=== PATIENT | male | born 1965 | race Asian ===

== ENCOUNTER → 2018-04-19 | Outpatient (CLI) | payer BC ==
[~2018-04-19] MED LIST: GADOBENATE DIMEGLUMINE 529 MG/ML 10ML IV ONE; IOHEXOL-300 50 ML BOTTLE IV ONE; LIDOCAINE HCL 1% 20ML VIAL (Pyxis) INJ ONE; SODIUM BICARBONATE 4% (2.4MEQ) 5ML VIAL IV ONE; SODIUM CHLORIDE 0.9% 10ML VIAL ONE
== END | disposition home or self-care (01) ==
LOC: MRI 09:47
DX: M17.12 Unilateral primary osteoarthritis, left knee (principal); M22.42 Chondromalacia patellae, left knee
CPT/HCPCS: 20611; 73580; 73722; A4216; A9577; J3490; Q9967

== ENCOUNTER → 2018-06-26 | Outpatient (CLI) | payer BC | END | disposition home or self-care (01) | LOC: RAD 08:13 | PROVIDERS: ATTEND Internal Medicine Gastroenterology | DX: Z01.818 Encounter for other preprocedural examination (principal); E78.00 Pure hypercholesterolemia, unspecified; R94.31 Abnormal electrocardiogram [ECG] [EKG] | CPT/HCPCS: 71045; 93005 ==

== ENCOUNTER → 2018-06-28 | Outpatient (CLI) | payer BC ==
[2018-06-28 13:17] LABS: BASOPHILS % 0.2 % (0.0-2.0); EOSINOPHILS % 1.9 % (0.0-5.0); LYMPHOCYTES % 30.3 % (20.0-50.0); MEAN CORPUSCULAR HEMOGLOBIN 32.1 pg (28.0-32.0); MEAN CORPUSCULAR VOLUME 94.3 fL (80.0-94.0); MEAN PLATELET VOLUME 8.9 fl (7.4-10.4); MONOCYTES % 5.5 % (2.0-8.0); NEUTROPHILS % 62.1 % (40.0-76.0); PLATELET 200 x1000/uL (130-400); RED BLOOD CELL COUNT 4.98 mill/uL (4.7-6.1)
[2018-06-28 13:25] LABS: PARTIAL THROMBOPLASTIN TIME 30.5 sec (23.4-31.0); PROTHROMBIN TIME 10.7 sec (9.6-11.0)
[2018-06-28 13:37] LABS: CHLORIDE 107 mEq/L (98-107)
[2018-06-28 13:45] LABS: LDL CHOLESTEROL 102 mg/dL (5-100)
[2018-06-28 13:46] LABS: HDL CHOLESTEROL 63 mg/dL (40-59)
== END | disposition home or self-care (01) ==
LOC: LAB 12:39
PROVIDERS: ATTEND Internal Medicine Gastroenterology
DX: Z01.818 Encounter for other preprocedural examination (principal); Z12.11 Encounter for screening for malignant neoplasm of colon; S83.242A Other tear of medial meniscus, current injury, left knee, initial encounter; E78.1 Pure hyperglyceridemia; X58.XXXA Exposure to other specified factors, initial encounter; Y93.89 Activity, other specified; Y92.89 Other specified places as the place of occurrence of the external cause; Y99.8 Other external cause status
CPT/HCPCS: 36415; 80061; 84443

== ENCOUNTER → 2018-06-29 | Outpatient (CLI) | payer BC ==
[2018-06-29 12:03] LABS: CLARITY URINE CLEAR (CLEAR); COLOR URINE YELLOW (YELLOW); KETONES URINE NEGATIVE (NEGATIVE); LEUKOCYTE ESTERASE URINE NEGATIVE (NEGATIVE); NITRITE URINE NEGATIVE (NEGATIVE); OCCULT BLOOD URINE NEGATIVE (NEGATIVE); PH URINE 5.5 (4.5-8.0); PROTEIN URINE NEGATIVE (NEGATIVE); SPECIFIC GRAVITY URINE 1.008 (1.005-1.030); UROBILINOGEN URINE 0.2 E.U./dL (0.2-1.0)
== END | disposition home or self-care (01) ==
LOC: LAB 11:21
PROVIDERS: ATTEND Internal Medicine Cardiovascular Disease
DX: Z12.11 Encounter for screening for malignant neoplasm of colon (principal)
CPT/HCPCS: 82270

== ENCOUNTER 2018-07-10 05:54 | Day surgery (SDC) | payer BC ==
[~2018-07-10] VITALS: Ht 170.2 cm; Wt 68.0 kg
[2018-07-10] MEDS ORDERED: FENTANYL CITRATE/PF 50MCG/ML 2ML VIAL ONE (06:27)
[2018-07-10] MEDS ORDERED: LIDOCAINE HCL/PF 1% 10 MG/ML 5ML VIAL ONE (06:27)
[2018-07-10] MEDS ORDERED: MIDAZOLAM HCL 2 MG/2 ML VIAL ONE (06:27)
[2018-07-10] MEDS ORDERED: PROPOFOL 200MG/20ML VIAL IV ONE (06:27)
[2018-07-10] MEDS ORDERED: ROCURONIUM BROMIDE 10MG/ML VIAL 5ML IV ONE (06:28)
[2018-07-10] MEDS ORDERED: SODIUM CHLORIDE 0.9% 10ML VIAL ONE ×2 (06:28→06:33)
[2018-07-10] MEDS ORDERED: CEFAZOLIN SODIUM 1000MG/VIAL ONE (06:28)
[2018-07-10] MEDS ORDERED: LACTATED RINGERS 1,000 ML IV SCH (06:30)
[2018-07-10] MEDS ORDERED: EPHEDRINE SULFATE 50MG/ML VIAL ONE (06:33)
[2018-07-10] MEDS ORDERED: DEXAMETHASONE 4MG/ML 1ML VIAL ONE (06:35)
[2018-07-10] MEDS ORDERED: BUPIVACAINE/EPINEPH/PF 0.25%/0.0005 10ML ONE (07:10)
[2018-07-10] MEDS ORDERED: MORPHINE SULFATE/PF 1MG/ML 10ML AMP ONE (07:11)
[2018-07-10] MEDS ORDERED: METOCLOPRAMIDE HCL 10MG/2ML VIAL ONE (08:41)
[2018-07-10] MEDS ORDERED: ONDANSETRON HCL 4MG/2ML INJ ONE (08:41)
[2018-07-10] MEDS ORDERED: FLUMAZENIL 0.1 MG/ML 5ML VIAL IV ONE (09:39)
[2018-07-10] MEDS ORDERED: HYDROCODONE/ACETAMINOPHEN 10/325MG TABLET PO PRN (10:00)
[2018-07-10] MEDS ORDERED: HYDROMORPHONE HCL/PF 2MG/ML CPJ IV PRN (10:00)
== END 2018-07-10 11:20 | disposition home or self-care (01) ==
LOC: OR 05:54
PROVIDERS: ATTEND Orthopaedic Surgery
DX: M94.262 Chondromalacia, left knee (principal); M65.88 Other synovitis and tenosynovitis, other site; S83.242A Other tear of medial meniscus, current injury, left knee, initial encounter; X58.XXXA Exposure to other specified factors, initial encounter; Y93.89 Activity, other specified; Y92.89 Other specified places as the place of occurrence of the external cause; Y99.8 Other external cause status
CPT/HCPCS: 29881; 88304; 88311; 97116; 97162; J0171; J0690; J1100; J2250; J2274; J2405; J2704; J2765; J3010; J3490

== ENCOUNTER → 2019-08-27 | Outpatient (CLI) | payer BC ==
[2019-08-27 09:57] LABS: BASOPHILS % 0.4 % (0.0-2.0); EOSINOPHILS % 0.6 % (0.0-5.0); HEMATOCRIT. 41.7 % (42.0-52.0); HEMOGLOBIN. 14.4 g/dL (14.0-18.0); LYMPHOCYTES % 24.1 % (20.0-50.0); MEAN CORPUSCULAR HEMOGLOBIN 33.5 pg (28.0-32.0); MEAN CORPUSCULAR VOLUME 96.8 fL (80.0-94.0); MONOCYTES % 5.3 % (2.0-8.0); NEUTROPHILS % 69.6 % (40.0-76.0); PLATELET 212 x1000/uL (130-400); RED CELL DISTRIBUTION WIDTH 13.2 % (11.6-14.6)
[2019-08-27 10:01] LABS: CLARITY URINE CLEAR (CLEAR); COLOR URINE YELLOW (YELLOW); KETONES URINE NEGATIVE (NEGATIVE); LEUKOCYTE ESTERASE URINE NEGATIVE (NEGATIVE); NITRITE URINE NEGATIVE (NEGATIVE); OCCULT BLOOD URINE NEGATIVE (NEGATIVE); PH URINE 6.5 (4.5-8.0); PROTEIN URINE NEGATIVE (NEGATIVE); SPECIFIC GRAVITY URINE 1.009 (1.005-1.030); UROBILINOGEN URINE 0.2 E.U./dL (0.2-1.0)
[2019-08-27 10:02] LABS: CHLORIDE 105 mEq/L (98-107)
[2019-08-27 10:09] LABS: LDL CHOLESTEROL 98 mg/dL (5-100)
[2019-08-27 10:10] LABS: HDL CHOLESTEROL 74 mg/dL (40-59); TOTAL IRON BINDING CAPACITY 337 ug/dL (250-450)
== END | disposition home or self-care (01) ==
LOC: LAB 09:18
PROVIDERS: ATTEND Internal Medicine Nephrology
DX: M17.0 Bilateral primary osteoarthritis of knee (principal); M25.461 Effusion, right knee
CPT/HCPCS: 36415; 73560; 80053; 80061; 81003; 82652; 83036; 83540; 83550; 83970; 84153; 84443; 85025; G0103

== ENCOUNTER → 2019-10-10 | Outpatient (CLI) | payer BC | END | disposition home or self-care (01) | LOC: MRI 09:49 | DX: S83.241A Other tear of medial meniscus, current injury, right knee, initial encounter (principal); S83.242A Other tear of medial meniscus, current injury, left knee, initial encounter; M25.562 Pain in left knee; M25.462 Effusion, left knee; M25.461 Effusion, right knee; M25.861 Other specified joint disorders, right knee; M94.262 Chondromalacia, left knee; X58.XXXA Exposure to other specified factors, initial encounter; Y93.89 Activity, other specified; Y92.89 Other specified places as the place of occurrence of the external cause; Y99.8 Other external cause status | CPT/HCPCS: 73721 ==

== ENCOUNTER → 2020-06-03 | Outpatient (CLI) | payer BC ==
[2020-06-03 09:56] LABS: HEMATOCRIT. 30.6 % (42.0-52.0); HEMOGLOBIN. 9.9 g/dL (14.0-18.0); MEAN CORPUSCULAR VOLUME 86.4 fL (80.0-94.0); MEAN PLATELET VOLUME 8.1 fl (7.4-10.4); PLATELET 360 x1000/uL (130-400); RED BLOOD CELL COUNT 3.54 mill/uL (4.7-6.1); RED CELL DISTRIBUTION WIDTH 17.7 % (11.6-14.6)
[2020-06-03 10:11] LABS: CLARITY URINE CLEAR (CLEAR); COLOR URINE YELLOW (YELLOW); KETONES URINE NEGATIVE (NEGATIVE); LEUKOCYTE ESTERASE URINE NEGATIVE (NEGATIVE); NITRITE URINE NEGATIVE (NEGATIVE); OCCULT BLOOD URINE NEGATIVE (NEGATIVE); PH URINE 7.5 (4.5-8.0); PROTEIN URINE NEGATIVE (NEGATIVE); SPECIFIC GRAVITY URINE 1.008 (1.005-1.030); UROBILINOGEN URINE 0.2 E.U./dL (0.2-1.0)
[2020-06-03 10:17] LABS: CHLORIDE 107 mEq/L (98-107)
[2020-06-03 10:24] LABS: LDL CHOLESTEROL 97 mg/dL (5-100)
[2020-06-03 10:26] LABS: HDL CHOLESTEROL 70 mg/dL (40-59)
[2020-06-03 10:29] LABS: T4 FREE 0.96 ng/dL (0.76-1.46)
[2020-06-03 12:45] LABS: PLATELET ESTIMATE NORMAL
[2020-06-03 13:54] LABS: PROSTRATE SPECIFIC AG TOTAL 3.97 ng/mL (0.0-4.0)
== END | disposition home or self-care (01) ==
LOC: LAB 09:16
PROVIDERS: ATTEND Internal Medicine Nephrology
DX: D64.9 Anemia, unspecified (principal)
CPT/HCPCS: 36415; 80048; 80061; 81003; 82306; 82728; 83036; 84153; 84439; 84443; 85025; 86677; G0103

== ENCOUNTER → 2020-06-05 | Outpatient (CLI) | payer BC ==
[~2020-06-05] MED LIST changes: +BARIUM SULFATE 450ML ORAL SUSP ONE; -GADOBENATE DIMEGLUMINE 529 MG/ML 10ML IV ONE; +IOHEXOL-300 100 ML BOTTLE ONE; -IOHEXOL-300 50 ML BOTTLE IV ONE; -LIDOCAINE HCL 1% 20ML VIAL (Pyxis) INJ ONE; -SODIUM BICARBONATE 4% (2.4MEQ) 5ML VIAL IV ONE; -SODIUM CHLORIDE 0.9% 10ML VIAL ONE
== END | disposition home or self-care (01) ==
LOC: CT 08:37
PROVIDERS: ATTEND Internal Medicine Nephrology
DX: K44.9 Diaphragmatic hernia without obstruction or gangrene (principal); K40.90 Unilateral inguinal hernia, without obstruction or gangrene, not specified as recurrent; N40.0 Benign prostatic hyperplasia without lower urinary tract symptoms; R63.4 Abnormal weight loss
CPT/HCPCS: 74178; Q9967

== ENCOUNTER → 2020-07-10 | Outpatient (CLI) | payer BC ==
[2020-07-10 11:43] LABS: BASOPHILS % 0.3 % (0.0-2.0); EOSINOPHILS % 1.3 % (0.0-5.0); HEMATOCRIT. 33.3 % (42.0-52.0); HEMOGLOBIN. 10.6 g/dL (14.0-18.0); LYMPHOCYTES % 37.7 % (20.0-50.0); MEAN CORPUSCULAR HEMOGLOBIN 24.7 pg (28.0-32.0); MEAN CORPUSCULAR VOLUME 77.6 fL (80.0-94.0); MEAN PLATELET VOLUME 8.6 fl (7.4-10.4); MONOCYTES % 7.8 % (2.0-8.0); NEUTROPHILS % 52.9 % (40.0-76.0); PLATELET 282 x1000/uL (130-400); RED CELL DISTRIBUTION WIDTH 21.8 % (11.6-14.6)
[2020-07-10 11:54] LABS: TOTAL IRON BINDING CAPACITY 416 ug/dL (250-450)
== END | disposition home or self-care (01) ==
LOC: LAB 10:56
PROVIDERS: ATTEND Internal Medicine Gastroenterology
DX: D64.9 Anemia, unspecified (principal)
CPT/HCPCS: 36415; 83540; 83550; 85025

== ENCOUNTER → 2022-01-21 | Outpatient (CLI) | payer BC ==
[2022-01-21 12:11] LABS: CLARITY URINE CLEAR (CLEAR); COLOR URINE YELLOW (YELLOW); KETONES URINE NEGATIVE (NEGATIVE); LEUKOCYTE ESTERASE URINE NEGATIVE (NEGATIVE); NITRITE URINE NEGATIVE (NEGATIVE); OCCULT BLOOD URINE NEGATIVE (NEGATIVE); PH URINE 6.5 (4.5-8.0); PROTEIN URINE NEGATIVE (NEGATIVE); SPECIFIC GRAVITY URINE 1.017 (1.005-1.030); UROBILINOGEN URINE 0.2 E.U./dL (0.2-1.0)
[2022-01-21 12:16] LABS: BASOPHILS % 0.2 % (0.0-2.0); EOSINOPHILS % 0.8 % (0.0-5.0); HEMATOCRIT. 47.7 % (42.0-52.0); HEMOGLOBIN. 16.4 g/dL (14.0-18.0); LYMPHOCYTES % 26.2 % (20.0-50.0); MEAN CORPUSCULAR HEMOGLOBIN 32.9 pg (28.0-32.0); MEAN CORPUSCULAR VOLUME 95.4 fL (80.0-94.0); MEAN PLATELET VOLUME 8.6 fl (7.4-10.4); MONOCYTES % 6.2 % (2.0-8.0); NEUTROPHILS % 66.6 % (40.0-76.0); PLATELET 213 x1000/uL (130-400); RED CELL DISTRIBUTION WIDTH 13.1 % (11.6-14.6)
[2022-01-21 14:33] LABS: CHLORIDE 103 mEq/L (98-107)
[2022-01-21 14:59] LABS: HDL CHOLESTEROL 66 mg/dL (40-59); LDL CHOLESTEROL 106 mg/dL (5-100)
[2022-01-25 05:09] LABS: HIV SCREEN 4G Non Reactive (Non Reactive); VITAMIN D 25-OH 37.9 ng/mL (30.0-100.0)
== END | disposition home or self-care (01) ==
LOC: LAB 11:42
DX: Z00.00 Encounter for general adult medical examination without abnormal findings (principal); Z13.220 Encounter for screening for lipoid disorders; Z12.5 Encounter for screening for malignant neoplasm of prostate; Z13.1 Encounter for screening for diabetes mellitus; Z11.4 Encounter for screening for human immunodeficiency virus [HIV]; Z11.3 Encounter for screening for infections with a predominantly sexual mode of transmission; E55.9 Vitamin D deficiency, unspecified
CPT/HCPCS: 36415; 80053; 80061; 81003; 82306; 83036; 84153; 84443; 85025; 86592; 87389; G0103

== ENCOUNTER → 2022-06-17 | Outpatient (CLI) | payer BC | END | disposition home or self-care (01) | LOC: RAD 11:13 | PROVIDERS: ATTEND Internal Medicine | DX: M17.12 Unilateral primary osteoarthritis, left knee (principal); M25.762 Osteophyte, left knee | CPT/HCPCS: 73560 ==

== ENCOUNTER → 2023-07-03 | Outpatient (CLI) | payer BC ==
[2023-07-03 09:09] LABS: CLARITY URINE CLEAR (CLEAR); COLOR URINE YELLOW (YELLOW); GLUCOSE URINE NEGATIVE (NEGATIVE); KETONES URINE NEGATIVE (NEGATIVE); LEUKOCYTE ESTERASE URINE NEGATIVE (NEGATIVE); NITRITE URINE NEGATIVE (NEGATIVE); OCCULT BLOOD URINE NEGATIVE (NEGATIVE); PROTEIN URINE NEGATIVE (NEGATIVE); SPECIFIC GRAVITY URINE 1.005 (1.005-1.030); UROBILINOGEN URINE 0.2 E.U./dL (0.2-1.0)
[2023-07-03 09:22] LABS: CARBON DIOXIDE 31 mEq/L (21-32); CHLORIDE 102 mEq/L (98-107); POTASSIUM 3.8 mEq/L (3.5-5.1); SODIUM 140 mEq/L (136-145)
[2023-07-03 09:23] LABS: CALCIUM 9.2 mg/dL (8.7-10.4)
[2023-07-03 09:27] LABS: CREATININE 1.1 mg/dL (0.6-1.3); GLUCOSE 93 mg/dL (70-105)
[2023-07-03 09:28] LABS: LDL CHOLESTEROL 120 mg/dL (5-100); TRIGLYCERIDE 85 mg/dL (0-150); UREA NITROGEN BLOOD 14 mg/dL (9-23)
[2023-07-03 09:29] LABS: ALANINE AMINOTRANSFERASE < 7 IU/L (10-49); ALBUMIN 4.5 g/dL (3.2-4.8); ASPARTATE AMINOTRANSFERASE 22 IU/L (<34); BASOPHILS % 0.3 % (0.0-2.0); EOSINOPHILS % 0.9 % (0.0-5.0); HEMATOCRIT. 44.3 % (42.0-52.0); HEMOGLOBIN. 15.6 g/dL (14.0-18.0); LYMPHOCYTES % 20.5 % (20.0-50.0); MEAN CORPUSCULAR HEMOGLOBIN 34.5 pg (28.0-32.0); MEAN CORPUSCULAR HGB CONC 35.2 g/dL (31.0-37.0); MEAN CORPUSCULAR VOLUME 98.1 fL (80.0-94.0); MEAN PLATELET VOLUME 9.3 fl (7.4-10.4); MONOCYTES % 5.9 % (2.0-8.0); NEUTROPHILS % 72.4 % (40.0-76.0); PLATELET 225 x1000/uL (130-400); RED BLOOD CELL COUNT 4.52 mill/uL (4.7-6.1); RED CELL DISTRIBUTION WIDTH 12.8 % (11.6-14.6); WHITE BLOOD COUNT 7.8 x1000/uL (4.5-11.0)
[2023-07-03 09:30] LABS: BILIRUBIN TOTAL 0.7 mg/dL (0.1-1.0); HDL CHOLESTEROL 62 mg/dL (>55); PROTEIN TOTAL 7.8 g/dL (6.0-8.3)
[2023-07-03 09:55] LABS: CHOLESTEROL 176 mg/dL (<200)
== END | disposition home or self-care (01) ==
LOC: LAB 08:41
PROVIDERS: ATTEND Internal Medicine
DX: Z00.00 Encounter for general adult medical examination without abnormal findings (principal); Z13.1 Encounter for screening for diabetes mellitus; Z12.5 Encounter for screening for malignant neoplasm of prostate; E78.5 Hyperlipidemia, unspecified
CPT/HCPCS: 36415; 80053; 80061; 81003; 83036; 84153; 85025

== ENCOUNTER → 2024-01-01 | Outpatient (CLI) | payer BC ==
[2024-01-01 12:23] LABS: CHLORIDE 106 mEq/L (98-107); POTASSIUM 4.9 mEq/L (3.5-5.1); SODIUM 141 mEq/L (136-145)
[2024-01-01 12:24] LABS: CALCIUM 9.5 mg/dL (8.7-10.4); CARBON DIOXIDE 32 mEq/L (21-32)
[2024-01-01 12:29] LABS: CREATININE 1.1 mg/dL (0.6-1.3); GLUCOSE 96 mg/dL (70-105); TRIGLYCERIDE 72 mg/dL (0-150); UREA NITROGEN BLOOD 13 mg/dL (9-23)
[2024-01-01 12:30] LABS: LDL CHOLESTEROL 96 mg/dL (5-100)
[2024-01-01 12:31] LABS: ALANINE AMINOTRANSFERASE 7 IU/L (10-49); ALBUMIN 4.3 g/dL (3.2-4.8); ASPARTATE AMINOTRANSFERASE 21 IU/L (<34); BILIRUBIN TOTAL 0.5 mg/dL (0.1-1.0); CHOLESTEROL 175 mg/dL (<200); HDL CHOLESTEROL 66 mg/dL (>55); PROTEIN TOTAL 7.6 g/dL (6.0-8.3)
== END | disposition home or self-care (01) ==
LOC: LAB 11:39
PROVIDERS: ATTEND Internal Medicine
DX: R73.03 Prediabetes (principal); E78.5 Hyperlipidemia, unspecified
CPT/HCPCS: 36415; 80053; 80061; 83036

== ENCOUNTER → 2024-07-02 | Outpatient (CLI) | payer BC | END | disposition home or self-care (01) | LOC: MRI 09:10 | PROVIDERS: ATTEND Internal Medicine Cardiovascular Disease | DX: S83.282A Other tear of lateral meniscus, current injury, left knee, initial encounter (principal); S83.8X2A Sprain of other specified parts of left knee, initial encounter; M17.12 Unilateral primary osteoarthritis, left knee; M19.011 Primary osteoarthritis, right shoulder; M71.22 Synovial cyst of popliteal space [Baker], left knee; M94.262 Chondromalacia, left knee; M25.462 Effusion, left knee; M25.411 Effusion, right shoulder; M65.962 Unspecified synovitis and tenosynovitis, left lower leg; M65.911 Unspecified synovitis and tenosynovitis, right shoulder; M21.962 Unspecified acquired deformity of left lower leg; M25.862 Other specified joint disorders, left knee; M25.811 Other specified joint disorders, right shoulder; M67.864 Other specified disorders of tendon, left knee; M67.813 Other specified disorders of tendon, right shoulder; M25.762 Osteophyte, left knee; M75.31 Calcific tendinitis of right shoulder; F42.9 Obsessive-compulsive disorder, unspecified; R93.7 Abnormal findings on diagnostic imaging of other parts of musculoskeletal system; X58.XXXA Exposure to other specified factors, initial encounter; Y93.89 Activity, other specified; Y92.89 Other specified places as the place of occurrence of the external cause; Y99.8 Other external cause status | CPT/HCPCS: 73221; 73721 ==

== ENCOUNTER → 2024-07-02 | Outpatient (CLI) | payer BC ==
[2024-07-02 09:54] LABS: BASOPHILS % 0.2 % (0.0-2.0); EOSINOPHILS % 1.3 % (0.0-5.0); HEMATOCRIT. 46.3 % (42.0-52.0); HEMOGLOBIN. 15.3 g/dL (14.0-18.0); LYMPHOCYTES % 23.8 % (20.0-50.0); MEAN CORPUSCULAR HEMOGLOBIN 31.7 pg (28.0-32.0); MEAN CORPUSCULAR HGB CONC 33.1 g/dL (31.0-37.0); MEAN CORPUSCULAR VOLUME 95.8 fL (80.0-94.0); MEAN PLATELET VOLUME 8.5 fl (7.4-10.4); MONOCYTES % 6.1 % (2.0-8.0); NEUTROPHILS % 68.6 % (40.0-76.0); PLATELET 198 x1000/uL (130-400); RED BLOOD CELL COUNT 4.83 mill/uL (4.7-6.1); RED CELL DISTRIBUTION WIDTH 13.2 % (11.6-14.6); WHITE BLOOD COUNT 6.9 x1000/uL (4.5-11.0)
[2024-07-02 10:01] LABS: CHLORIDE 103 mEq/L (98-107); POTASSIUM 4.5 mEq/L (3.5-5.1); SODIUM 139 mEq/L (136-145)
[2024-07-02 10:02] LABS: CALCIUM 9.3 mg/dL (8.7-10.4); CARBON DIOXIDE 33 mEq/L (21-32)
[2024-07-02 10:07] LABS: GLUCOSE 89 mg/dL (70-105); TRIGLYCERIDE 88 mg/dL (0-150); UREA NITROGEN BLOOD 17 mg/dL (9-23)
[2024-07-02 10:08] LABS: LDL CHOLESTEROL 130 mg/dL (5-100)
[2024-07-02 10:09] LABS: ALANINE AMINOTRANSFERASE 15 IU/L (10-49); ALBUMIN 4.3 g/dL (3.2-4.8); ASPARTATE AMINOTRANSFERASE 34 IU/L (<34); BILIRUBIN TOTAL 0.7 mg/dL (0.1-1.0); CHOLESTEROL 219 mg/dL (<200); HDL CHOLESTEROL 66 mg/dL (>55); PROTEIN TOTAL 7.7 g/dL (6.0-8.3)
[2024-07-02 10:09] LABS: CLARITY URINE CLEAR (CLEAR); COLOR URINE YELLOW (YELLOW); GLUCOSE URINE NEGATIVE (NEGATIVE); KETONES URINE NEGATIVE (NEGATIVE); LEUKOCYTE ESTERASE URINE NEGATIVE (NEGATIVE); NITRITE URINE NEGATIVE (NEGATIVE); OCCULT BLOOD URINE NEGATIVE (NEGATIVE); PH URINE 7.5 (4.5-8.0); PROTEIN URINE NEGATIVE (NEGATIVE); SPECIFIC GRAVITY URINE 1.008 (1.005-1.030); UROBILINOGEN URINE 0.2 E.U./dL (0.2-1.0)
== END | disposition home or self-care (01) ==
LOC: LAB 09:15
PROVIDERS: ATTEND Internal Medicine
DX: E78.5 Hyperlipidemia, unspecified (principal); Z12.5 Encounter for screening for malignant neoplasm of prostate; Z13.1 Encounter for screening for diabetes mellitus; Z00.00 Encounter for general adult medical examination without abnormal findings
CPT/HCPCS: 36415; 80053; 80061; 81003; 83036; 84153; 85025